=== PATIENT | female | born 1935 | race Caucasian/White ===

== ENCOUNTER → 2018-09-04 16:04 | Outpatient (REF) | payer MEDICARE, OTHER, SELFPAY | LOC: LAB 16:04 | PROVIDERS: Visit Provider Ophthalmology | DX: H10.33 Unspecified acute conjunctivitis, bilateral (principal) | CPT/HCPCS: 87070; 87205; 87255 ==

== ENCOUNTER → 2019-08-06 14:40 | Outpatient (CLI) | payer MEDICARE, OTHER, SELFPAY ==
--- NOTE | 2019-08-06 | DI.US.S_ITS ---
PROCEDURE: US CAROTID DOPPLER BI INDICATIONS: CENTRAL RETINAL VEIN OCCLUSION, LT EYE, MACULAR EDEMA TECHNIQUE: Color and pulse Doppler interrogation was performed of both carotid systems, with image documentation and velocity measurements. COMPARISON: None. FINDINGS: Stenosis calculations are based on SRU (Society of Radiologists in Ultrasound) criteria. Right side: Brachial blood pressure: 187/76 mm Hg. Common carotid artery peak systolic velocity: 104 cm/sec. Internal carotid artery peak systolic velocity: 162 cm/sec. Internal carotid artery end diastolic velocity: 31 cm/sec. External carotid artery peak systolic velocity: 226 cm/sec. ICA/CCA peak systolic ratio: 1.6. Castañeda scale imaging description: Moderate scattered plaque. Percent internal carotid artery stenosis: 50-69% stenosis. Vertebral artery: Flow direction is antegrade. Left side: Brachial blood pressure: 130/74 mm Hg. Common carotid artery peak systolic velocity: 128 cm/sec. Internal carotid artery peak systolic velocity: 148 cm/sec. Internal carotid artery end diastolic velocity: 30 cm/sec. External carotid artery peak systolic velocity: 194 cm/sec. ICA/CCA peak systolic ratio: 1.2. Castañeda scale imaging description: Heavy scattered plaque. Percent internal carotid artery stenosis: 50-69% stenosis. Vertebral artery: Retrograde flow. IMPRESSION: 50-69% bilateral internal carotid artery stenosis. Dictated by: Jose Armando DOWLING Interpreted: Pauline Denney MD on 08/06/2019 at 17:23 Approved by: Pauline Denney M.D. on 08/06/2019 at 18:38
== END ==
PROVIDERS: Visit Provider Ophthalmology
DX: H34.8120 Central retinal vein occlusion, left eye, with macular edema (principal); H35.82 Retinal ischemia; I65.23 Occlusion and stenosis of bilateral carotid arteries
CPT/HCPCS: 93880

== ENCOUNTER 2019-10-05 10:30 | Emergency (ER) | payer MEDICARE, OTHER, SELFPAY ==
[2019-10-05 10:42] VITALS: BP 140/67; PULSE 76; RESP 12; TEMP 36.2; O2SAT 99
--- NOTE | 2019-10-05 10:42 | DI.US.S_ITS ---
PROCEDURE: US PERIPH VENOUS LOW EXTREM RT INDICATIONS: RT LEG SWELLING TECHNIQUE: Real-time imaging, as well as color and pulse Doppler interrogation, were performed of the lower extremity deep veins from the inguinal ligament to the popliteal fossa. COMPARISON: None. FINDINGS: The common femoral, femoral and popliteal veins are normally compressible, and free of intraluminal thrombus. Color and pulse Doppler demonstrate normal phasic intraluminal flow. There is normal augmentation response to distal compression maneuver. IMPRESSION: No evidence of right lower extremity deep vein thrombosis. Dictated by: Regino Scott M.D. on 10/05/2019 at 11:06 Approved by: Regino Scott M.D. on 10/05/2019 at 11:07
--- NOTE | 2019-10-05 11:20 | ED_ITS ---
HPI - Extremity Problem General Chief complaint: Extremity Problem,Nontraumatic Stated complaint: phys reff bloot clot rt leg sent for US Time Seen by Provider: 10/05/19 10:42 Source: patient and family Mode of arrival: Ambulatory History of Present Illness HPI Narrative: 84-year-old woman with a history of ulcerative colitis presents with increasing right lower extremity pain and swelling. She was seen by her primary care physician on [facility] yesterday who was concerned about a blood clot. She notes that her leg is been bothering her for 2 weeks but in the last 24 hours has gotten significantly worse. There is a bit more swelling about the knee and tenderness in the posterior popliteal fossa. She feels that the right leg is slightly weaker than the left but there is no other sensory deficits or specific neurologic findings. Related Data Previous Rx's Medication Instructions Recorded fluticasone propionate 2 spray INTRANASAL QDAY #16 gm 06/20/16 mesalamine 4 gm [place] HS #90 ea 06/28/16 balsalazide [Colazal] 0 PO SEE INSTRUCTIONS #280 cap 12/07/16 fluoxetine 20 mg PO QDAY #90 cap 12/07/16 Allergies Allergy/AdvReac Type Severity Reaction Status Date / Time Penicillins [PENICILLINS] Allergy Intermediate Hives Unverified 12/06/17 13:04 SULFA Allergy Unknown Uncoded 12/06/17 13:04 Review of Systems Review of Systems Narrative: Notes chronic diarrhea secondary to her ulcerative colitis, this is improving with recent medication changes She recently spent almost 9 months with very minimal mobility due to ulcerative colitis flare. Over the last 3-4 months has been improving significantly She reports a fall about 3 weeks ago landing on her left side with some minor bruising along the left arm that's healing well. Seems to be unrelated to current right lower extremity issue Denies ? fever ? cough ? cold ? chills ? chest pain ? dyspnea ? orthopnea ? wheezing ? abdominal pain ? nausea vomiting ? skin changes ? 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 Able to give a complete and coherent history. Well-nourished well-developed HEENT: Moist mucous membranes, normal sclera with reactive pupils, Neck: No JVD, supple Respiratory: Lungs are clear to auscultation, no wheezing no rales no rhonchi. Full and symmetrical air movement Cardiac: Regular rate and rhythm no murmurs no bruits Abdomen: Soft nontender good bowel tones, no flank pain Skin: Warm and dry, no rashes Neurologic: Grossly neurologically intact with no obvious asymmetries or abnormalities. Full sensation upper and lower extremities is symmetrical. She is able to stand on her left leg with minimal assistance. Able to stand on her right leg with a bit more instability due to the knee pain. Extremities: No trauma, well perfused. Right knee with a mild effusion but full range of motion. No warmth or redness. She is tender in the popliteal fossa without obvious fullness. The right leg up to approximately the mid thigh is slightly swollen. Full dorsalis pedis and posterior tibialis pulses bilaterally. Right hip with full range of motion with minor tenderness with significant external rotation Psych: Cooperative, appropriate insight and affect Spine: No point tenderness along her axial skeleton and no tenderness with pelvic ring manipulation Initial Vital Signs Initial Vital Signs: Vital Signs Temperature 97.2 F L 10/05/19 10:42 Pulse Rate 76 10/05/19 10:42 Respiratory Rate 12 10/05/19 10:42 Blood Pressure 140/67 10/05/19 10:42 Pulse Oximetry 99 10/05/19 10:42 Course Orders Ordered: ED Orders 10/05/19 10:42 US periph venous low extrem rt Stat Vital Signs Vital signs: Vital Signs - 8 hr 10/05/19 10:42 Temperature 97.2 F L Pulse Rate 76 Respiratory Rate 12 Blood Pressure 140/67 Pulse Oximetry 99 MDM - Extremity (Nontraumatic) Imaging Data US - DVT: Radiologist's Impression: IMPRESSION: No evidence of right lower extremity deep vein thrombosis. Dictated by: Regino Scott M.D. on 10/05/2019 at 11:06 MDM Narrative Medical decision making narrative: No evidence of a DVT. She does have a mild right knee effusion without evidence of cellulitis or trauma. I suspect this is the source of her pain. At this point she can safely take 1 g of Tylenol up to twice a day given her Crohn's disease. She does have a history of alcohol use disorder and declines any narcotics and states the pain is not significant to warrant narcotics in the 1st place. I have suggested that she iced the knee if needed use Tylenol as needed and use her walking sticks to make sure that her stability is maintained she doesn't fall. They suggested if she is not getting better within a week that it would be appropriate follow-up with her primary care physician I do not suspect infection, DVT, stroke, fractures. There may be a component of radicular neuropathy however she has no point tenderness along her back or flank. Arthritis at either with a knee hip or back are all also possibilities. Questions are answered. She is safe for home discharge Discharge Plan Departure Patient Disposition: Home Clinical Impression: Acute knee pain Qualifiers: Laterality: right Qualified Code(s): M25.561 - Pain in right knee Effusion of knee Qualifiers: Laterality: right Qualified Code(s): M25.461 - Effusion, right knee Instructions: DI for Knee Effusion Activity Restrictions/Additional Instructions: Thank you for coming in today I'm happy to let you know that you do not have a blood clot in your right leg. You do have an effusion in the right knee and I suspect this is either due to some irritation of knee arthritis or a slight strain to your knee. There is the possibility that your back could be pinching a nerve exacerbating some of the pain down her leg. At this time, rest, ice, Tylenol and making sure that you do not fall by consistently using walking sticks is the right treatment for all of the possibilities. If you find that you are getting worse, or if your knee joint is becoming more tender more swollen red or warm to the touch you do need to be re-evaluated. If you feel that you still are not improving by next week I do recommend that you follow-up with your primary care physician I hope you heal quickly Prescriptions: No Action fluticasone propionate 16 GM spray,suspension 2 spray Intranasal QDAY Qty: 16 RF: 6 mesalamine 4 GM/60 ML enema 4 gm WY HS Qty: 90 RF: 2 balsalazide [Colazal] 750 MG capsule 0 PO SEE INSTRUCTIONS Qty: 280 RF: 11 fluoxetine 20 MG capsule 20 mg PO QDAY Qty: 90 RF: 2 Referrals: Gerardo Medrano [Primary Care Provider] -
[2019-10-05 13:00] VITALS: BP 131/63; PULSE 73; O2SAT 97
== END 2019-10-05 13:00 | disposition home or self-care (01) ==
PROVIDERS: Emergency Provider Emergency Medicine; PCP Family Medicine
DX: M25.461 Effusion, right knee (principal); M25.561 Pain in right knee
CPT/HCPCS: 93971; 99283

== ENCOUNTER → 2019-10-11 13:25 | Outpatient (CLI) | payer MEDICARE, OTHER, SELFPAY ==
--- NOTE | 2019-10-11 | DI.MRI.S_ITS ---
PROCEDURE: MR LUMBAR SPINE WO CON INDICATIONS: Disease of spinal cord, unspecified TECHNIQUE: Noncontrast sagittal T1 spin echo and T2 fast echo, sagittal STIR, axial T1 and T2 fast spin echo through the lumbar spine. In cases with scoliosis, additional coronal T2 fast spin echo may be performed. COMPARISON: None. FINDINGS: Image quality: Excellent. Alignment and Curvature: There is minimal retrolisthesis at the L3-L4 level. Mild grade 1 anterolisthesis is seen at L4-L5. Bone Marrow: Marrow is of normal overall signal. No acute vertebral body compression fractures. Spinal Cord: Conus medullaris terminates at the L1 level. Visualized cord demonstrates normal signal and size. Paraspinous Soft Tissues: No paravertebral masses. T12-L1: Normal appearance. L1-L2: Normal appearance. L2-L3: The disc height is well-preserved. Loss of disc signal is seen at this level. Moderate generalized disc bulge is seen. Mild bilateral neural foraminal narrowing is seen. Mild central canal narrowing is seen. L3-L4: Moderate loss of disc height is seen. Loss of disc signal is seen. Reactive marrow endplate changes are seen which are hypointense on T1-weighted imaging and hyperintense on T2 weighted imaging, which is most consistent with edema (Modic type I changes). Moderate disc bulge is seen, which is eccentric to the left. [id number] facet hypertrophy is seen. There is moderate bilateral neural foraminal narrowing and moderate central canal narrowing seen at this level. L4-L5: Ytfu-ab-[id number] loss of disc height and disc signal can be seen. Moderate disc bulge is seen, with a central disc protrusion. Moderate to prominent facet hypertrophy is seen, with associated moderate hypertrophy of the ligamentum flavum. There is mild to moderate left-sided and moderate right-sided neural foraminal narrowing seen. Moderate to severe central canal narrowing is seen. L5-S1: The disc height is well-preserved. Loss of disc signal is seen at this level. A faintly seen annular fissure is present posteriorly. Mild to moderate disc bulge is seen, with a mild central disc protrusion. Moderate facet hypertrophy is seen, left worse than right. Lkah-ca-[id number] bilateral neural foraminal narrowing is seen. Mild central canal narrowing is seen. IMPRESSION: Lower lumbar spine degenerative changes are seen, which are worst at L3-L4 and L4-L5. Dictated by: Ziggy Preston M.D. on 10/11/2019 at 14:45 Approved by: Ziggy Preston M.D. on 10/11/2019 at 14:49
== END ==
PROVIDERS: PCP Family Medicine; Referring Provider Family Medicine; Visit Provider Family Medicine
DX: G95.9 Disease of spinal cord, unspecified (principal); M47.26 Other spondylosis with radiculopathy, lumbar region; M54.5 Low back pain
CPT/HCPCS: 72148

== ENCOUNTER → 2020-12-25 10:01 | Outpatient (CLI) | payer MEDICARE, OTHER, SELFPAY ==
[2020-12-25 19:35] LABS: Alanine Aminotransferase 24 IU/L (<35); Albumin 4.6 g/dL (3.5-5.0); Albumin Globulin Ratio 1.6 (1.0-2.8); Alkaline Phosphatase 67 U/L (38-126); Aspartate Aminotransferase 36 IU/L (14-36); BUN Creatinine Ratio 24.3 (6-22); Bilirubin Total 0.4 mg/dL (0.2-1.3); Blood Urea Nitrogen 17 mg/dL (7-17); Calcium 10.3 mg/dL (8.4-10.2); Carbon Dioxide 26 mmol/L (22-32); Chloride 96 mmol/L (98-107); Estimated Glomerular Filt Rate > 60.0 mL/min (>60); Globulin 2.8 g/dL (1.7-4.1); Glucose 89 mg/dL (80-110); HEMOLYSIS < 15 (0-50); Potassium 4.7 mmol/L (3.4-5.1); Sodium 131 mmol/L (137-145); Total Protein 7.4 g/dL (6.3-8.2)
[2020-12-25 19:40] LABS: High Sensitivity CRP - Cardiac < 0.3 mg/L (1.0-3.0)
[2020-12-25 19:41] LABS: Hematocrit 34.4 % (36-46); Hemoglobin 11.9 g/dL (12.0-16.0); Mean Corpuscular HGB Conc 34.6 % (30-36); Mean Corpuscular Hemoglobin 31.3 PG (26-34); Mean Corpuscular Volume 90.6 fL (80-100); Platelet Count 269 X10^3/uL (150-400); Red Blood Cell Count 3.79 X10^6/uL (4.0-5.2); Red Cell Distribution Width 14.4 % (11.6-14.8); White Blood Cell Count 4.6 X10^3/uL (4.5-11.0)
== END ==
PROVIDERS: PCP Family Medicine; Visit Provider Nurse Practitioner Adult Health
DX: Z87.39 Personal history of other diseases of the musculoskeletal system and connective tissue (principal); K51.30 Ulcerative (chronic) rectosigmoiditis without complications
CPT/HCPCS: 80053; 85027; 86140

== ENCOUNTER → 2022-10-18 14:11 | Outpatient (CLI) | payer MEDICARE, OTHER, SELFPAY ==
[2022-10-18 19:41] LABS: Add Manual Diff / Slide Review NO; Basophils Absolute Auto 0 /uL (0-100); Basophils Percent Auto 0.5 % (0-2); Eosinophils Absolute Auto 100 /uL (0-450); Eosinophils Percent Auto 2.4 % (2-4); Lymphocytes Absolute Auto 1600 /uL (1100-4500); Lymphocytes Percent Auto 28.4 % (25-40); Mean Corpuscular HGB Conc 33.2 % (30-36); Mean Corpuscular Hemoglobin 29.5 PG (26-34); Monocytes Absolute Auto 500 /uL (0-900); Monocytes Percent Auto 8.7 % (3-14); Neutrophils Absolute Auto 3300 /uL (1500-7000); Platelet Count 311 X10^3/uL (150-400); Red Blood Cell Count 4.05 X10^6/uL (4.0-5.2); White Blood Cell Count 5.6 X10^3/uL (4.5-11.0)
[2022-10-18 19:52] LABS: HEMOLYSIS < 15 (0-50); Iron 87 ug/dL (37-170)
[2022-10-18 19:54] LABS: Alanine Aminotransferase 20 IU/L (<35); Albumin 4.8 g/dL (3.5-5.0); Albumin Globulin Ratio 1.6 (1.0-2.8); Alkaline Phosphatase 100 U/L (38-126); Aspartate Aminotransferase 26 IU/L (14-36); BUN Creatinine Ratio 32.8 (6-22); Bilirubin Total 0.4 mg/dL (0.2-1.3); Blood Urea Nitrogen 20 mg/dL (7-17); Calcium 9.6 mg/dL (8.4-10.2); Carbon Dioxide 26 mmol/L (22-32); Chloride 94 mmol/L (98-107); Estimated Glomerular Filt Rate > 60 mL/min (>60); Glucose 166 mg/dL (80-110); HEMOLYSIS < 15 (0-50); Potassium 4.5 mmol/L (3.4-5.1); Sodium 132 mmol/L (137-145); Total Protein 7.8 g/dL (6.3-8.2)
[2022-10-18 20:00] LABS: High Sensitivity CRP - Cardiac 0.8 mg/L (1.0-3.0)
[2022-10-18 20:04] LABS: Percent Iron Saturation 24 % (15-50); Total Iron Binding Capacity 358 ug/dL (265-497); Transferrin 278 mg/dL (206-381)
[2022-10-18 20:08] LABS: Vitamin D 25 Hydroxy (D3) 40.8 ng/mL (30.0-100.0)
[2022-10-18 20:28] LABS: Ferritin 34 ng/mL (11-264)
[2022-10-18 21:00] LABS: Folate > 20.0 ng/mL (2.76-20.0); Vitamin B12 805 pg/mL (239-931)
[2022-10-20 18:07] LABS: Zinc 82 ug/dL (44-115)
[2022-10-21 02:22] LABS: QuantiFERON Mitogen Value 9.05 IU/mL (.); QuantiFERON TB Gold Plus Negative (Negative)
== END ==
PROVIDERS: PCP Family Medicine; Visit Provider Internal Medicine Gastroenterology
DX: M81.0 Age-related osteoporosis without current pathological fracture (principal); K51.30 Ulcerative (chronic) rectosigmoiditis without complications; Z87.39 Personal history of other diseases of the musculoskeletal system and connective tissue; K51.00 Ulcerative (chronic) pancolitis without complications
CPT/HCPCS: 80053; 82306; 82607; 82728; 82746; 83540; 83550; 84630; 85025; 86140; 86480

== ENCOUNTER 2024-11-06 13:32 | Emergency (ER) | payer MEDICARE, OTHER, SELFPAY ==
[2024-11-06] VITALS (23 sets, daily range): BP systolic 98–184; BP diastolic 55–77; PULSE 65–95; RESP 14–28; TEMP 36.7; O2SAT 94–99; BMI 27.6
--- NOTE | 2024-11-06 13:42 | DI.RAD.S_ITS ---
PROCEDURE: XR CHEST 1V INDICATIONS: chest pain TECHNIQUE: One view of the chest was acquired. COMPARISON: None. FINDINGS: Surgical changes and devices: Surgical clips are seen in the liver region of left breast Lungs and pleura: Mild pulmonary vascular congestion is seen. No definite focal infiltrate. No pleural effusions or pneumothorax. Mediastinum: Mediastinal contours appear normal. Heart size is normal. Bones and chest wall: No suspicious bony lesions. Overlying soft tissues appear unremarkable. IMPRESSION: Mild congestion. No definite focal infiltrate, pleural effusion or pneumothorax. Dictated by: Natanael Knox M.D. on 11/06/2024 at 14:50 Approved by: Natanael Knox M.D. on 11/06/2024 at 15:12
--- NOTE | 2024-11-06 13:42 | EKG_ITS ---
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
[2024-11-06 14:24] LABS: Hematocrit 30.3 % (36-46); Hemoglobin 10.2 g/dL (12.0-16.0); Mean Corpuscular HGB Conc 33.7 % (30-36); Mean Corpuscular Hemoglobin 30.2 PG (26-34); Mean Corpuscular Volume 89.8 fL (80-100); Platelet Count 251 X10^3/uL (150-400); Red Blood Cell Count 3.37 X10^6/uL (4.0-5.2); White Blood Cell Count 14.5 X10^3/uL (4.5-11.0)
[2024-11-06 14:25] LABS: Add Manual Diff / Slide Review YES
[2024-11-06 14:26] LABS: INR 1.1 (0.9-1.3)
[2024-11-06 14:29] LABS: PTT Partial Thromboplastin Tim 17 SECONDS (25.1-36.5)
[2024-11-06 14:31] LABS: Alanine Aminotransferase 135 IU/L (<35); Albumin 4.2 g/dL (3.5-5.0); Albumin Globulin Ratio 1.3 (1.0-2.8); Alkaline Phosphatase 113 U/L (38-126); Aspartate Aminotransferase 128 IU/L (14-36); BUN Creatinine Ratio 40.4 (6-22); Bilirubin Total 0.9 mg/dL (0.2-1.3); Blood Urea Nitrogen 23 mg/dL (7-17); Carbon Dioxide 22 mmol/L (22-32); Chloride 95 mmol/L (98-107); Creatine Kinase 294 U/L (30-135); Estimated Glomerular Filt Rate > 60 mL/min (>60); Globulin 3.3 g/dL (1.7-4.1); Glucose 117 mg/dL (80-110); HEMOLYSIS 142 (0-50); Lipase 11 U/L (23-300); Magnesium 1.6 mg/dL (1.6-2.3); Sodium 129 mmol/L (137-145); Total Protein 7.5 g/dL (6.3-8.2)
[2024-11-06 14:43] LABS: NT-proBNP (BNP-Adult 18+) 13500 pg/mL (<450)
[2024-11-06 14:44] LABS: Neutrophils Absolute Manual 11745 /uL (3000-5900); Total Cells Counted 100
[2024-11-06 14:45] LABS: Anisocytosis 1+; Troponin I 0.317 ng/mL (0.01-0.034)
[2024-11-06] MEDS: ASPIRIN 81 MG CHEW TAB 324 MG PO (14:48)
--- NOTE | 2024-11-06 15:03 | ED_ITS ---
HPI - General Adult <Amelia Gresham MD - Last Filed: 11/07/24 08:04> General Chief complaint: Syncope Stated complaint: poss uti, syncope Time Seen by Provider: 11/06/24 15:03 Source: patient Mode of arrival: Family Vehicle History of Present Illness HPI narrative: 89-year-old woman with minimal medical history recent UTI treated with nitrofurantoin, near the end of that course she developed significant vomiting and diarrhea that she attributed to an adverse reaction to the antibiotic. The UTI symptoms are no longer present. She presents after having a syncopal episode at about 10 30 last night and again at about 330 this morning. Slight dyspnea with no chest pain. No cough, reports a fever to 102 earlier today but is afebrile in the emergency department. She has in no acute distress able to speak in complete sentences and comes in for further evaluation Related Data Previous Rx's Medication Instructions Recorded fluticasone propionate 50 2 spray intranasal QDAY ##16 06/20/16 mcg/actuation nasal spray,suspension mesalamine 4 gram/60 mL enema 4 gm IA HS #90 ea 06/28/16 balsalazide 750 mg capsule 0 PO SEE INSTRUCTIONS #280 caps 12/07/16 (Colazal) fluoxetine 20 mg capsule 20 mg PO QDAY #90 caps 12/07/16 Allergies Allergy/AdvReac Type Severity Reaction Status Date / Time infliximab [From Remicade] Allergy Severe Anaphylaxis Verified 11/06/24 18:39 adalimumab [From Humira] Allergy Intermediate Rash Verified 11/06/24 18:39 Penicillins [PENICILLINS] Allergy Intermediate Hives Verified 11/06/24 14:27 Sulfa (Sulfonamide Allergy Unknown Verified 11/06/24 14:27 Antibiotics) Review of Systems <Amelia Gresham MD - Last Filed: 11/07/24 08:04> Review of Systems Narrative: Pertinent positive and negative findings as per HPI Patient History <Amelia Gresham MD - Last Filed: 11/07/24 08:04> Medical History (Updated 11/06/24 @ 17:54 by Amelia Gresham MD) Alcohol use disorder 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/06/15) Surgical History Status post colonoscopy Status post hysterectomy History of cataract removal with insertion of prosthetic lens History of tonsillectomy Social History Smoking Status: Never smoker Smoking Status: Never smoker Exam <Amelia Gresham MD - Last Filed: 11/07/24 08:04> Initial Vital Signs Initial Vital Signs: Vital Signs Temperature 98.0 F 11/06/24 13:43 Pulse Rate 81 11/06/24 13:43 Respiratory Rate 14 11/06/24 13:43 Blood Pressure 116/57 L 11/06/24 13:43 Pulse Oximetry 99 11/06/24 13:43 Oxygen Delivery Method Room Air 11/06/24 13:43 General: Healthy appearing, in no acute distress. Able to give a complete and coherent history. Well-nourished well-developed HEENT: Moist mucous membranes, normal sclera with reactive pupils, Neck: No JVD, supple Respiratory: Lungs are clear to auscultation, no wheezing no rales no rhonchi. Full and symmetrical air movement Cardiac: Regular rate and rhythm, 4/6 holosystolic murmur heard best at the left upper sternal border Abdomen: Soft, nontender, good bowel tones, no flank pain Skin: Warm and dry, no rashes Neurologic: Grossly neurologically intact with no obvious asymmetries or abnormalities Extremities: No trauma, well perfused Psych: Cooperative, appropriate insight and affect <Caitlyn Murphy DO - Last Filed: 11/06/24 22:37> Initial Vital Signs Initial Vital Signs: Vital Signs Temperature 98.0 F 11/06/24 13:43 Pulse Rate 81 11/06/24 13:43 Respiratory Rate 14 11/06/24 13:43 Blood Pressure 116/57 L 11/06/24 13:43 Pulse Oximetry 99 11/06/24 13:43 Oxygen Delivery Method Room Air 11/06/24 13:43 Course <Amelia Gresham MD - Last Filed: 11/07/24 08:04> Orders Ordered: Discontinued Medications Aspirin (Aspirin 81 Mg Chew Tab) 324 mg PO NOW ONE Stop: 11/06/24 13:43 Last Admin: 11/06/24 14:48 Dose: 324 mg Documented By: SB Aspirin (Aspirin 81 Mg Chew Tab) 324 mg PO NOW ONE Stop: 11/06/24 15:19 Last Admin: 11/06/24 16:31 Dose: Not Given Documented By: MONSERRAT Heparin Sodium (Porcine) (Heparin 5,000 Unit/Ml Vial) 4,000 unit 60 unit/kg (4000 unit) IV NOW ONE Stop: 11/06/24 15:19 Last Admin: 11/06/24 16:22 Dose: 4,000 unit Documented By: MONSERRAT Ceftazidime 2 gm/ Sodium (Chloride) 100 mls @ 200 mls/hr IV NOW ONE Stop: 11/06/24 15:50 Last Infusion: 11/06/24 18:25 Dose: Infused Documented By: Admin: 11/06/24 16:48 Dose: 200 mls/hr Documented By: VILMA Heparin Sodium/Dextrose (Heparin Drip) 25,000 unit in 500 mls @ 16.482 mls/hr IV CONT DIAZ; Protocol Last Titration: 11/06/24 22:14 Dose: 12.01 units/kg/hr, 16.5 mls/hr Documented By: VILMA Co-signed By: VILMA(2) Admin: 11/06/24 16:53 Dose: 12.01 units/kg/hr, 16.5 mls/hr Documented By: VILMA Co-signed By: VILMA(2) Ceftazidime 1 gm/ Sodium (Chloride) 100 mls @ 200 mls/hr IV Q12H D[facility]Z Ceftazidime 1 gm/ Sodium (Chloride) 100 mls @ 200 mls/hr IV Q12H [facility] Vital Signs Vital signs: Vital Signs - 8 hr 11/06/24 15:00 11/06/24 15:00 11/06/24 15:30 Pulse Rate 72 68 Respiratory Rate 18 19 Blood Pressure 125/60 Pulse Oximetry 96 94 Oxygen Delivery Method 11/06/24 15:30 11/06/24 16:00 11/06/24 16:00 Pulse Rate 72 Respiratory Rate 21 Blood Pressure 113/67 129/63 Pulse Oximetry 97 Oxygen Delivery Method 11/06/24 16:10 11/06/24 16:30 11/06/24 17:00 Pulse Rate 75 Respiratory Rate Blood Pressure 98/55 L 117/57 L Pulse Oximetry 96 Oxygen Delivery Method Room Air 11/06/24 17:30 11/06/24 17:55 11/06/24 17:55 Pulse Rate 73 75 Respiratory Rate 20 Blood Pressure 169/73 H Pulse Oximetry 98 98 Oxygen Delivery Method Room Air 11/06/24 18:00 11/06/24 18:00 11/06/24 18:30 Pulse Rate 74 Respiratory Rate Blood Pressure 154/60 H 169/74 H Pulse Oximetry 98 Oxygen Delivery Method 11/06/24 18:30 11/06/24 19:00 11/06/24 19:01 Pulse Rate 70 65 67 Respiratory Rate 17 17 19 Blood Pressure Pulse Oximetry 96 96 94 Oxygen Delivery Method Room Air 11/06/24 19:01 11/06/24 19:30 11/06/24 19:31 Pulse Rate 68 69 Respiratory Rate 18 18 Blood Pressure 146/65 H Pulse Oximetry 96 96 Oxygen Delivery Method 11/06/24 19:31 11/06/24 20:00 11/06/24 20:01 Pulse Rate 68 66 Respiratory Rate 17 18 Blood Pressure 184/72 H Pulse Oximetry 94 94 Oxygen Delivery Method 11/06/24 20:01 11/06/24 20:30 11/06/24 21:00 Pulse Rate Respiratory Rate Blood Pressure 161/68 H 154/72 H 170/73 H Pulse Oximetry Oxygen Delivery Method 11/06/24 21:00 11/06/24 21:30 11/06/24 21:30 Pulse Rate 79 95 H Respiratory Rate 21 28 H Blood Pressure 178/77 H Pulse Oximetry 96 97 Oxygen Delivery Method 11/06/24 22:00 11/06/24 22:01 11/06/24 22:01 Pulse Rate 84 82 Respiratory Rate 22 Blood Pressure 152/67 H Pulse Oximetry 97 97 Oxygen Delivery Method Room Air <Caitlyn Murphy DO - Last Filed: 11/06/24 22:37> Orders Ordered: Discontinued Medications Aspirin (Aspirin 81 Mg Chew Tab) 324 mg PO NOW ONE Stop: 11/06/24 13:43 Last Admin: 11/06/24 14:48 Dose: 324 mg Documented By: SB Aspirin (Aspirin 81 Mg Chew Tab) 324 mg PO NOW ONE Stop: 11/06/24 15:19 Last Admin: 11/06/24 16:31 Dose: Not Given Documented By: MPO Heparin Sodium (Porcine) (Heparin 5,000 Unit/Ml Vial) 4,000 unit 60 unit/kg (4000 unit) IV NOW ONE Stop: 11/06/24 15:19 Last Admin: 11/06/24 16:22 Dose: 4,000 unit Documented By: MONSERRAT Ceftazidime 2 gm/ Sodium (Chloride) 100 mls @ 200 mls/hr IV NOW ONE Stop: 11/06/24 15:50 Last Infusion: 11/06/24 18:25 Dose: Infused Documented By: Admin: 11/06/24 16:48 Dose: 200 mls/hr Documented By: VILMA Heparin Sodium/Dextrose (Heparin Drip) 25,000 unit in 500 mls @ 16.482 mls/hr IV CONT DIAZ; Protocol Last Titration: 11/06/24 22:14 Dose: 12.01 units/kg/hr, 16.5 mls/hr Documented By: VILMA Co-signed By: VILMA(2) Admin: 11/06/24 16:53 Dose: 12.01 units/kg/hr, 16.5 mls/hr Documented By: VILMA Co-signed By: VILMA(2) Ceftazidime 1 gm/ Sodium (Chloride) 100 mls @ 200 mls/hr IV Q12H [facility] Ceftazidime 1 gm/ Sodium (Chloride) 100 mls @ 200 mls/hr IV Q12H [facility] Vital Signs Vital signs: Vital Signs - 8 hr 11/06/24 15:00 11/06/24 15:00 11/06/24 15:30 Pulse Rate 72 68 Respiratory Rate 18 19 Blood Pressure 125/60 Pulse Oximetry 96 94 Oxygen Delivery Method 11/06/24 15:30 11/06/24 16:00 11/06/24 16:00 Pulse Rate 72 Respiratory Rate 21 Blood Pressure 113/67 129/63 Pulse Oximetry 97 Oxygen Delivery Method 11/06/24 16:10 11/06/24 16:30 11/06/24 17:00 Pulse Rate 75 Respiratory Rate Blood Pressure 98/55 L 117/57 L Pulse Oximetry 96 Oxygen Delivery Method Room Air 11/06/24 17:30 11/06/24 17:55 11/06/24 17:55 Pulse Rate 73 75 Respiratory Rate 20 Blood Pressure 169/73 H Pulse Oximetry 98 98 Oxygen Delivery Method Room Air 11/06/24 18:00 11/06/24 18:00 11/06/24 18:30 Pulse Rate 74 Respiratory Rate Blood Pressure 154/60 H 169/74 H Pulse Oximetry 98 Oxygen Delivery Method 11/06/24 18:30 11/06/24 19:00 11/06/24 19:01 Pulse Rate 70 65 67 Respiratory Rate 17 17 19 Blood Pressure Pulse Oximetry 96 96 94 Oxygen Delivery Method Room Air 11/06/24 19:01 11/06/24 19:30 11/06/24 19:31 Pulse Rate 68 69 Respiratory Rate 18 18 Blood Pressure 146/65 H Pulse Oximetry 96 96 Oxygen Delivery Method 11/06/24 19:31 11/06/24 20:00 11/06/24 20:01 Pulse Rate 68 66 Respiratory Rate 17 18 Blood Pressure 184/72 H Pulse Oximetry 94 94 Oxygen Delivery Method 11/06/24 20:01 11/06/24 20:30 11/06/24 21:00 Pulse Rate Respiratory Rate Blood Pressure 161/68 H 154/72 H 170/73 H Pulse Oximetry Oxygen Delivery Method 11/06/24 21:00 11/06/24 21:30 11/06/24 21:30 Pulse Rate 79 95 H Respiratory Rate 21 28 H Blood Pressure 178/77 H Pulse Oximetry 96 97 Oxygen Delivery Method 11/06/24 22:00 11/06/24 22:01 11/06/24 22:01 Pulse Rate 84 82 Respiratory Rate 22 Blood Pressure 152/67 H Pulse Oximetry 97 97 Oxygen Delivery Method Room Air Medical Decision Making <Amelia Gresham MD - Last Filed: 11/07/24 08:04> Lab Data 11/06/24 14:10 11/06/24 14:10 Labs: Lab Results 11/06/24 11/06/24 11/06/24 Range/Units 13:38 14:10 16:18 WBC 14.5 H (4.5-11.0) X10^3/uL RBC 3.37 L (4.0-5.2) X10^6/uL Hgb 10.2 L (12.0-16.0) g/dL Hct 30.3 L (36-46) % MCV 89.8 (80-100) fL MCH 30.2 (26-34) PG MCHC 33.7 (30-36) % RDW 15.0 H (11.6-14.8) % Plt Count 251 (150-400) X10^3/uL Neut % (Auto) Not Reportable Lymph % (Auto) Not Reportable [place] % (Auto) Not Reportable Eos % (Auto) Not Reportable Baso % (Auto) Not Reportable Lymph # (Auto) Not Reportable [place] # (Auto) Not Reportable Baso # (Auto) Not Reportable Total Counted 100 Seg Neutrophils % 57.0 (38-70) % Band Neutrophils % 24.0 H (3-7) % Lymphocytes % (Manual) 11.0 L (25-45) % Monocytes % (Manual) 8.0 (2-11) % Neutrophils # (Manual) 97421 H (0958-7383) /uL RBC Morphology See below Anisocytosis 1+ H PT 12.0 (9.4-12.5) SECONDS INR 1.1 (0.9-1.3) APTT 17 L (25.1-36.5) SECONDS Sodium 129 L (137-145) mmol/L Potassium 4.0 (3.4-5.1) mmol/L Chloride 95 L (98-107) mmol/L Carbon Dioxide 22 (22-32) mmol/L BUN 23 H (7-17) mg/dL Creatinine 0.57 (0.52-1.04) mg/dL Estimated GFR > 60 (>60) mL/min BUN/Creatinine Ratio 40.4 H (6-22) Glucose 117 H (80-110) mg/dL Lactate (0.7-2.1) mmol/L Calcium 9.0 (8.4-10.2) mg/dL Magnesium 1.6 (1.6-2.3) mg/dL Total Bilirubin 0.9 (0.2-1.3) mg/dL AST 128 H (14-36) IU/L ALT 135 H (<35) IU/L Alkaline Phosphatase 113 (38-126) U/L Total Creatine Kinase 294 H (30-135) U/L Troponin I 0.317 H* 0.298 H* (0.01-0.034) ng/mL NT-Pro-B Natriuret Pep 81502 H (<450) pg/mL Total Protein 7.5 (6.3-8.2) g/dL Albumin 4.2 (3.5-5.0) g/dL Globulin 3.3 (1.7-4.1) g/dL Albumin/Globulin Ratio 1.3 (1.0-2.8) Lipase 11 L (23-300) U/L Urine RBC 1-5/hpf (0-5/HPF) Urine WBC 30-100/hpf H (0-5/HPF) Ur Squamous Epith Cells None seen (0-5/HPF) Urine Bacteria Many (>30) H (None) Ur Culture Indicated? Specimen cultured Vol Urine Centrifuged 10ml (spun) SARS-CoV-2 (PCR) (Negative) Influenza A (RT-PCR) (NEGATIVE) Influenza B (RT-PCR) (NEGATIVE) RSV (PCR) (Negative) 11/06/24 11/06/24 Range/Units 16:37 17:01 WBC (4.5-11.0) X10^3/uL RBC (4.0-5.2) X10^6/uL Hgb (12.0-16.0) g/dL Hct (36-46) % MCV (80-100) fL MCH (26-34) PG MCHC (30-36) % RDW (11.6-14.8) % Plt Count (150-400) X10^3/uL Neut % (Auto) Lymph % (Auto) [place] % (Auto) Eos % (Auto) Baso % (Auto) Lymph # (Auto) [place] # (Auto) Baso # (Auto) Total Counted Seg Neutrophils % (38-70) % Band Neutrophils % (3-7) % Lymphocytes % (Manual) (25-45) % Monocytes % (Manual) (2-11) % Neutrophils # (Manual) (9502-6276) /uL RBC Morphology Anisocytosis PT (9.4-12.5) SECONDS INR (0.9-1.3) APTT 133 H* D (25.1-36.5) SECONDS Sodium (137-145) mmol/L Potassium (3.4-5.1) mmol/L Chloride (98-107) mmol/L Carbon Dioxide (22-32) mmol/L BUN (7-17) mg/dL Creatinine (0.52-1.04) mg/dL Estimated GFR (>60) mL/min BUN/Creatinine Ratio (6-22) Glucose (80-110) mg/dL Lactate 1.4 (0.7-2.1) mmol/L Calcium (8.4-10.2) mg/dL Magnesium (1.6-2.3) mg/dL Total Bilirubin (0.2-1.3) mg/dL AST (14-36) IU/L ALT (<35) IU/L Alkaline Phosphatase (38-126) U/L Total Creatine Kinase (30-135) U/L Troponin I (0.01-0.034) ng/mL NT-Pro-B Natriuret Pep (<450) pg/mL Total Protein (6.3-8.2) g/dL Albumin (3.5-5.0) g/dL Globulin (1.7-4.1) g/dL Albumin/Globulin Ratio (1.0-2.8) Lipase (23-300) U/L Urine RBC (0-5/HPF) Urine WBC (0-5/HPF) Ur Squamous Epith Cells (0-5/HPF) Urine Bacteria (None) Ur Culture Indicated? Vol Urine Centrifuged SARS-CoV-2 (PCR) Negative (Negative) Influenza A (RT-PCR) Flu a negative (NEGATIVE) Influenza B (RT-PCR) Flu b negative (NEGATIVE) RSV (PCR) Negative (Negative) MDM Narrative Medical decision making narrative: CC: 2 syncopal episodes earlier today, being treated for a UTI, complains of dyspnea Complicating co-morbidities: Depression, inflammatory bowel disease Data collected from: patient, partner Medical records reviewed: Minimal records available for review Differential considered: Viral syndrome, acute anemia, acute cardiac etiology, sepsis, rhythm abnormality Exam documented above, pertinent findings include: Patient appears remarkably well, alert and appropriate, she has a longstanding 4/6 heart murmur and remainder of exam benign Lab Test results independently reviewed as above. Pertinent findings: CBC shows leukocytosis at 14.5 with bands at 24%. Mild anemia at 10.2 and 30.3. Platelets are appropriate Chemistries show hyponatremia at 129., renal function appropriate at 0.57, AST and ALT are elevated at 128 and 135 respectively. Coagulation studies are unremarkable Lactic acid is not elevated Initial troponin significantly elevated at 0.317 Initial BNP significantly elevated at 13, 500 Independently reviewed EKG: Sinus rhythm at a rate of 76, nonspecific STT wave changes Imaging studies independently reviewed: Chest x-ray shows mild cardiomegaly, mild congestion without focal infiltrate no pleural effusions or pneumothorax Treatments and re-evaluation: Aspirin, heparin for the elevated troponin With a significant leukocytosis with bandemia, blood cultures and lactic acid are ordered, she is started on Zosyn for presumed urinary source. We will add influenza testing Clinically she does not have dramatic congestive heart failure she has not requiring additional oxygen. We will hold on any diuretics at this point She is not immediately hypotensive nor tachycardic to suggest severe sepsis we will hold on additional fluids at this point Re-evaluations: Care is discussed with hospitalist. Recommends PE study given syncope and elevated enzymes despite no hypoxia or tachycardia. This is ordered. He also feels that an otherwise healthy 89-year-old woman with an NSTEMI would likely benefit from admission to hospital where heart catheterization can be done. We will begin to look for available beds Discussion: 89-year-old woman with 2 episodes of syncope, elevated troponin, no acute changes to her EKG. No chest pain. Heparin has been initiated, 2nd troponin is trending down. Recently treated for UTI and felt she had adverse reaction to nitrofurantoin, currently with a white count at 14.5 and 24% bands uncertain etiology, broad- spectrum antibiotics with a focus on UTI. Lactic acid is not elevated, she has not hypotensive, I do not suspect sepsis at this time Elevated proBNP was not aware of congestive heart failure as a prior diagnosis, clinically does not have crackles, JVD or lower extremity edema Hyponatremia at 129 AST and ALT are elevated at 128 and 135 respectively <Caitlyn Murphy, - Last Filed: 11/06/24 22:37> Lab Data Labs: Lab Results 11/06/24 11/06/24 11/06/24 Range/Units 13:38 14:10 16:18 WBC 14.5 H (4.5-11.0) X10^3/uL RBC 3.37 L (4.0-5.2) X10^6/uL Hgb 10.2 L (12.0-16.0) g/dL Hct 30.3 L (36-46) % MCV 89.8 (80-100) fL MCH 30.2 (26-34) PG MCHC 33.7 (30-36) % RDW 15.0 H (11.6-14.8) % Plt Count 251 (150-400) X10^3/uL Neut % (Auto) Not Reportable Lymph % (Auto) Not Reportable [place] % (Auto) Not Reportable Eos % (Auto) Not Reportable Baso % (Auto) Not Reportable Lymph # (Auto) Not Reportable [place] # (Auto) Not Reportable Baso # (Auto) Not Reportable Total Counted 100 Seg Neutrophils % 57.0 (38-70) % Band Neutrophils % 24.0 H (3-7) % Lymphocytes % (Manual) 11.0 L (25-45) % Monocytes % (Manual) 8.0 (2-11) % Neutrophils # (Manual) 88446 H (6364-5716) /uL RBC Morphology See below Anisocytosis 1+ H PT 12.0 (9.4-12.5) SECONDS INR 1.1 (0.9-1.3) APTT 17 L (25.1-36.5) SECONDS Sodium 129 L (137-145) mmol/L Potassium 4.0 (3.4-5.1) mmol/L Chloride 95 L (98-107) mmol/L Carbon Dioxide 22 (22-32) mmol/L BUN 23 H (7-17) mg/dL Creatinine 0.57 (0.52-1.04) mg/dL Estimated GFR > 60 (>60) mL/min BUN/Creatinine Ratio 40.4 H (6-22) Glucose 117 H (80-110) mg/dL Lactate (0.7-2.1) mmol/L Calcium 9.0 (8.4-10.2) mg/dL Magnesium 1.6 (1.6-2.3) mg/dL Total Bilirubin 0.9 (0.2-1.3) mg/dL AST 128 H (14-36) IU/L ALT 135 H (<35) IU/L Alkaline Phosphatase 113 (38-126) U/L Total Creatine Kinase 294 H (30-135) U/L Troponin I 0.317 H* 0.298 H* (0.01-0.034) ng/mL NT-Pro-B Natriuret Pep 59545 H (<450) pg/mL Total Protein 7.5 (6.3-8.2) g/dL Albumin 4.2 (3.5-5.0) g/dL Globulin 3.3 (1.7-4.1) g/dL Albumin/Globulin Ratio 1.3 (1.0-2.8) Lipase 11 L (23-300) U/L Urine RBC 1-5/hpf (0-5/HPF) Urine WBC 30-100/hpf H (0-5/HPF) Ur Squamous Epith Cells None seen (0-5/HPF) Urine Bacteria Many (>30) H (None) Ur Culture Indicated? Specimen cultured Vol Urine Centrifuged 10ml (spun) SARS-CoV-2 (PCR) (Negative) Influenza A (RT-PCR) (NEGATIVE) Influenza B (RT-PCR) (NEGATIVE) RSV (PCR) (Negative) 11/06/24 11/06/24 Range/Units 16:37 17:01 WBC (4.5-11.0) X10^3/uL RBC (4.0-5.2) X10^6/uL Hgb (12.0-16.0) g/dL Hct (36-46) % MCV (80-100) fL MCH (26-34) PG MCHC (30-36) % RDW (11.6-14.8) % Plt Count (150-400) X10^3/uL Neut % (Auto) Lymph % (Auto) [place] % (Auto) Eos % (Auto) Baso % (Auto) Lymph # (Auto) [place] # (Auto) Baso # (Auto) Total Counted Seg Neutrophils % (38-70) % Band Neutrophils % (3-7) % Lymphocytes % (Manual) (25-45) % Monocytes % (Manual) (2-11) % Neutrophils # (Manual) (6752-5603) /uL RBC Morphology Anisocytosis PT (9.4-12.5) SECONDS INR (0.9-1.3) APTT 133 H* D (25.1-36.5) SECONDS Sodium (137-145) mmol/L Potassium (3.4-5.1) mmol/L Chloride (98-107) mmol/L Carbon Dioxide (22-32) mmol/L BUN (7-17) mg/dL Creatinine (0.52-1.04) mg/dL Estimated GFR (>60) mL/min BUN/Creatinine Ratio (6-22) Glucose (80-110) mg/dL Lactate 1.4 (0.7-2.1) mmol/L Calcium (8.4-10.2) mg/dL Magnesium (1.6-2.3) mg/dL Total Bilirubin (0.2-1.3) mg/dL AST (14-36) IU/L ALT (<35) IU/L Alkaline Phosphatase (38-126) U/L Total Creatine Kinase (30-135) U/L Troponin I (0.01-0.034) ng/mL NT-Pro-B Natriuret Pep (<450) pg/mL Total Protein (6.3-8.2) g/dL Albumin (3.5-5.0) g/dL Globulin (1.7-4.1) g/dL Albumin/Globulin Ratio (1.0-2.8) Lipase (23-300) U/L Urine RBC (0-5/HPF) Urine WBC (0-5/HPF) Ur Squamous Epith Cells (0-5/HPF) Urine Bacteria (None) Ur Culture Indicated? Vol Urine Centrifuged SARS-CoV-2 (PCR) Negative (Negative) Influenza A (RT-PCR) Flu a negative (NEGATIVE) Influenza B (RT-PCR) Flu b negative (NEGATIVE) RSV (PCR) Negative (Negative) MDM Narrative Medical decision making narrative: CC: 2 syncopal episodes earlier today, being treated for a UTI, complains of dyspnea Complicating co-morbidities: Depression, inflammatory bowel disease Data collected from: patient, partner Medical records reviewed: Minimal records available for review Differential considered: Viral syndrome, acute anemia, acute cardiac etiology, sepsis, rhythm abnormality Exam documented above, pertinent findings include: Patient appears remarkably well, alert and appropriate, she has a longstanding 4/6 heart murmur and remainder of exam benign Lab Test results independently reviewed as above. Pertinent findings: CBC shows leukocytosis at 14.5 with bands at 24%. Mild anemia at 10.2 and 30.3. Platelets are appropriate Chemistries show hyponatremia at 129., renal function appropriate at 0.57, AST and ALT are elevated at 128 and 135 respectively. Coagulation studies are unremarkable Lactic acid is not elevated Initial troponin significantly elevated at 0.317 Initial BNP significantly elevated at 13, 500 Independently reviewed EKG: Sinus rhythm at a rate of 76, nonspecific STT wave changes Imaging studies independently reviewed: Chest x-ray shows mild cardiomegaly, mild congestion without focal infiltrate no pleural effusions or pneumothorax Treatments and re-evaluation: Aspirin, heparin for the elevated troponin With a significant leukocytosis with bandemia, blood cultures and lactic acid are ordered, she is started on Zosyn for presumed urinary source. We will add influenza testing Clinically she does not have dramatic congestive heart failure she has not requiring additional oxygen. We will hold on any diuretics at this point She is not immediately hypotensive nor tachycardic to suggest severe sepsis we will hold on additional fluids at this point Re-evaluations: Care is discussed with hospitalist. Recommends PE study given syncope and elevated enzymes despite no hypoxia or tachycardia. This is ordered. He also feels that an otherwise healthy 89-year-old woman with an NSTEMI would likely benefit from admission to hospital where heart catheterization can be done. We will begin to look for available beds Discussion: 89-year-old woman with 2 episodes of syncope, elevated troponin, no acute changes to her EKG. No chest pain. Heparin has been initiated, 2nd troponin is trending down. Recently treated for UTI and felt she had adverse reaction to nitrofurantoin, currently with a white count at 14.5 and 24% bands uncertain etiology, broad- spectrum antibiotics with a focus on UTI. Lactic acid is not elevated, she has not hypotensive, I do not suspect sepsis at this time Elevated proBNP was not aware of congestive heart failure as a prior diagnosis, clinically does not have crackles, JVD or lower extremity edema Hyponatremia at 129 AST and ALT are elevated at 128 and 135 respectively 11/06/2024 Dr. Murphy, patient signed out to myself by Dr. Gresham. Labs, imaging and EKG were reviewed patient had 2 syncopal episodes overnight was found to have UTI has a bandemia, troponins are positive, congestive heart failure, patient had PE scan which is negative for pulmonary emboli, does show cardiomegaly, severe coronary artery calcifications and congestive heart failure exacerbations. Patient has received aspirin, she was on heparin, received ceftazidime. Patient was seen and evaluated by myself. She was currently asymptomatic. Spoke with Dr. Jonh pope accepts. Critical Care Time <Caitlyn Murphy, DO - Last Filed: 11/06/24 22:37> Critical Care Time Critical Care Time: Yes Total Critical Care Time: 35 Attestation: The high probability of a clinically significant, sudden or life threatening deterioration of the cardiac system(s) required my full and direct attention, intervention and personal management. The aggregate critical care time was [--] minutes. This time is in addition to time spent performing reported procedures but includes the following: [x] Data Review and interpretation [x] Patient assessment and monitoring of vital signs [x] Documentation [x] Medication orders and management Discharge Plan Departure Patient Disposition: [facility] Clinical Impression: Acute non-ST elevation myocardial infarction (NSTEMI), Acute hyponatremia, Bandemia Syncope Qualifiers: Syncope type: unspecified Qualified Code(s): R55 - Syncope and collapse Urinary tract infection Qualifiers: Urinary tract infection type: site unspecified Hematuria presence: without hematuria Qualified Code(s): N39.0 - Urinary tract infection, site not specified Prescriptions: No Action fluticasone propionate 16 GM spray,suspension 2 spray Intranasal QDAY Qty: 16 6RF mesalamine 4 GM/60 ML enema 4 gm IA HS Qty: 90 2RF balsalazide [Colazal] 750 MG capsule 0 PO SEE INSTRUCTIONS Qty: 280 11RF fluoxetine 20 MG capsule 20 mg PO QDAY Qty: 90 2RF Referrals: Gerardo Medrano MD [Primary Care Provider] -
[2024-11-06] MEDS: HEPARIN 5,000 UNIT/ML VIAL 4000 UNIT IV (16:22)
--- NOTE | 2024-11-06 16:41 | DI.CT.S_ITS ---
PROCEDURE: CT ANGIO CHEST PE PROTOCOL INDICATIONS: syncope, elevated Trop TECHNIQUE: After the administration of intravenous contrast, 2 mm thick sections acquired from the pulmonary apices to the posterior costophrenic angles. 3-dimensional maximum intensity projection (MIP) coronal and sagittal reformats were then acquired through the thorax. For radiation dose reduction, the following was used: automated exposure control, adjustment of mA and/or kV according to patient size. COMPARISON: None. FINDINGS: Image quality: Diagnostic. Pulmonary arteries: Pulmonary arteries are normal in size, and demonstrate no intraluminal filling defects to suggest central pulmonary embolism. Lower Neck: No enlarged lymph nodes. Thyroid: No thyroid nodules which require sonographic follow up, per consensus guidelines. Axillae: No enlarged lymph nodes. Chest Wall: Unremarkable. Bones: Old T12 compression.. Lungs and Pleura: Interstitial pulmonary edema and subtle areas of subtle developing confluent alveolar edema, right greater than left. Heart: Heart size is normal. No pericardial effusion. Thoracic Vessels: No aortic aneurysm. Mediastinum and Melissa: No enlarged lymph nodes. Esophagus: No wall thickening. No hiatal hernia. Upper Abdomen: Visualized upper abdomen solid organs and bowel loops appear normal. IMPRESSION: 1. No acute pulmonary emboli. 2. Cardiomegaly and severe coronary artery calcifications. 3. Congestive heart failure exacerbation. Dictated by: Reynaldo Ybarra M.D. on 11/06/2024 at 18:46 Approved by: Reynaldo Ybarra M.D. on 11/06/2024 at 18:50
[2024-11-06 16:52] LABS: Troponin I 0.298 ng/mL (0.01-0.034)
[2024-11-06] MEDS: HEPARIN DRIP 25,000 UNIT/500 ML IV.SOLN 16.5 UNIT IV (16:53)
[2024-11-06 17:05] LABS: Lactate (Lactic Acid) 1.4 mmol/L (0.7-2.1)
[2024-11-06 17:07] LABS: Bacteria Urine Many (>30); RBC Urine 1-5/HPF (0-5/HPF); Urine Volume 10mL (spun); WBC Urine 30-100/HPF (0-5/HPF)
[2024-11-06 17:08] LABS: Culture Indicated Urine Specimen Cultured; Squamous Epithelial Cell Urine None Seen (0-5/HPF)
[2024-11-06 17:37] LABS: PTT Partial Thromboplastin Tim 133 SECONDS (25.1-36.5)
[2024-11-06 17:41] LABS: Influenza A - CEPHEID Flu A NEGATIVE (NEGATIVE); Influenza B - CEPHEID Flu B NEGATIVE (NEGATIVE); Respiratory Syncytial Virus Negative (Negative)
[2024-11-06 17:47] LABS: COVID-19 CEPHEID 4-PLEX PCR Negative (Negative)
== END 2024-11-06 22:18 | disposition short-term general hospital (02) ==
PROVIDERS: Emergency Medicine; Emergency Provider Emergency Medicine; PCP Family Medicine
DX: I21.4 Non-ST elevation (NSTEMI) myocardial infarction (principal); E87.1 Hypo-osmolality and hyponatremia; D72.825 Bandemia; R55 Syncope and collapse; N39.0 Urinary tract infection, site not specified; R06.00 Dyspnea, unspecified; R19.7 Diarrhea, unspecified; R11.10 Vomiting, unspecified
CPT/HCPCS: 0241U; 36415; 71045; 71275; 80053; 81015; 82550; 83605; 83690; 83735; 83880; 84484; 85007; 85025; 85610; 85730; 87040; 87077; 87086; 87186; 93005; 96365; 96366; 96368; 96375; 99284; 99291; J0713; J1644; Q9967